=== PATIENT | female | born 1975 | race Caucasian/White ===

== ENCOUNTER 2017-06-02 22:02 | Emergency (ER) | payer MEDICAID ==
[2017-06-02 22:47] LABS: URINE BLOOD (Dip) POC Trace-intact (NEGATIVE); URINE GLUCOSE (Dip) POC Negative (NEGATIVE); URINE KETONES (Dip) POC Negative (NEGATIVE); URINE LEUKOCYTE EST (Dip) POC 3+ (NEGATIVE); URINE NITRITE (Dip) POC Negative (NEGATIVE); URINE TOTAL PROTEIN POC Negative (NEGATIVE)
[2017-06-02] MEDS: morphine 4 MG/ML VIAL IM (22:56)
[2017-06-03] MEDS: KETOROLAC 60 MG INJ IM (00:22)
== END 2017-06-03 00:41 | disposition home or self-care (01) ==
LOC: FTE 06-03 00:41
DX: S39.012A Strain of muscle, fascia and tendon of lower back, initial encounter (principal); W18.39XA Other fall on same level, initial encounter; Y92.89 Other specified places as the place of occurrence of the external cause
CPT/HCPCS: 81003; 81025; 96372; 99284-25

== ENCOUNTER 2018-05-07 19:29 | Emergency (ER) | payer MEDICAID | END 2018-05-07 20:49 | disposition home or self-care (01) | LOC: FTE 19:29 | DX: J32.9 Chronic sinusitis, unspecified (principal); J40 Bronchitis, not specified as acute or chronic | CPT/HCPCS: 99283; Z7502 ==